=== PATIENT | male | born 1990 | race Caucasian/White ===

== ENCOUNTER 2024-01-15 20:56 | Emergency (ER) | payer OTHER ==
[~2024-01-15] VITALS: Ht 175.3 cm; Wt 90.0 kg
[~2024-01-15 20:56] MED LIST: AMOXICILLIN 50500 MG PO; PERCOCET 325 MG1 TA2 PO; ULTRAM 50MG TAB50 MG PO
[2024-01-15 21:04] VITALS: TEMP 97.9
[2024-01-15 23:10] VITALS: BP 146/90; PULSE 82
== END 2024-01-15 23:19 | disposition home or self-care (01) ==
LOC: COL.ER 20:56
DX: H10.33 Unspecified acute conjunctivitis, bilateral (principal); R03.0 Elevated blood-pressure reading, without diagnosis of hypertension; R09.81 Nasal congestion